=== PATIENT | male | born 1940 | race Caucasian/White ===

== ENCOUNTER → 2018-06-29 10:08 | Outpatient (CLI) | payer MEDICARE, OTHER, SELFPAY ==
--- NOTE | 2018-06-29 10:12 | DI.RAD.S_ITS ---
PROCEDURE: XR LUMBAR SPINE MIN 4V INDICATIONS: Lumbar stenosis with lower extremity radicular TECHNIQUE: 5 views of the lumbar spine were acquired. COMPARISON: None. FINDINGS: Bones: No fracture or focal osseous destruction. Dextroscoliosis is noted centered at the level of L2. There is diffuse lumbar disc degeneration and spurring. Multilevel facet arthropathy. Grade 1 retrolisthesis of L2 on L3 and L3 on L4. Grade 1 anterolisthesis of L5 on S1 and grade 1 anterolisthesis of T12 on L1. Soft tissues: Overlying bowel gas pattern is normal. Postsurgical changes projecting at the level of L4-L5. No suspicious soft tissue calcifications. Oblique images: No pars defects. IMPRESSION: Severe multilevel lumbar disc degeneration and facet arthropathy. Dextroscoliosis of the level of L2. Spondylolisthesis as above Dictated by: Khanh Daniels M.D. on 06/29/2018 at 16:39 Approved by: Khanh Daniels M.D. on 06/29/2018 at 16:41
== END ==
PROVIDERS: PCP Internal Medicine; Visit Provider Physical Medicine & Rehabilitation
DX: M48.061 Spinal stenosis, lumbar region without neurogenic claudication (principal); M51.16 Intervertebral disc disorders with radiculopathy, lumbar region; M47.26 Other spondylosis with radiculopathy, lumbar region; M41.86 Other forms of scoliosis, lumbar region; M43.16 Spondylolisthesis, lumbar region
CPT/HCPCS: 72110; 99215

== ENCOUNTER 2018-07-04 11:03 | Outpatient (CLI) | payer MEDICARE, OTHER, SELFPAY ==
[2018-07-04] VITALS (12 sets, daily range): BP systolic 119–154; BP diastolic 59–83; PULSE 62–67; RESP 14–20; TEMP 36.1; O2SAT 94–99
--- NOTE | 2018-07-04 11:05 | DI.RAD.S_ITS ---
PROCEDURE: PAIN L/S TRANSFORAMINAL INJECT INDICATIONS: Lumbar stenosis with lower extremity radicular FINDINGS: Fluoroscopic spot filming was performed to verify placement of spinal needles at the right L4-L5 level(s), as labeled on the films. Appropriate location(s) of the needle tip(s) was confirmed by injection of iodinated contrast. IMPRESSION: Successful needle tip localization at the right L4-5 transforaminal region for epidural steroid injection. Dictated by: Blair Isaac M.D. on 07/04/2018 at 13:16 Approved by: Blair Isaac M.D. on 07/04/2018 at 13:17
[2018-07-04] MEDS: MIDAZOLAM 5 MG/5 ML VIAL IV (12:05)
[2018-07-04] MEDS: methylPREDNISolone acetate 80 MG/ML VIAL INJ (12:14)
[2018-07-04] MEDS: IOPAMIDOL 15 ML VIAL 3 ML INJ (12:14)
[2018-07-04] MEDS: BUPIVACAINE 0.25% (PF) VIAL 2 ML INJ (12:14)
[2018-07-04] MEDS: DEXAMETHASONE 10 MG/ML VIAL 20 MG INJ (12:15)
--- NOTE | 2018-07-04 12:27 | P.PCN_ITS ---
Procedures Date/Time Date of procedure: 07/04/18 Time of procedure: 12:26 General Procedure description: PREOP DIAGNOSIS 1. FORMAINAL STENOSIS WITH LE SYMPTOMS POST OP DIAGNOSIS 1. FORMAINAL STENOSIS WITH LE SYMPTOMS PROCEDURES 1. FLUOROSCOPICALLY GUIDED CONTRAST CONTROLLED TRANSFORAMINAL EPIDURAL STEROID INJECTION - RIGHT L4/5 TFESI PHYSICIAN: Ben Marin DO INDICATIONS: Meet is referred by for treatment of Foraminal Stenosis with Right LE Symptoms FINDINGS Foraminal Nerve Root Compression secondary to disc disease and facet hypertrophy DESCRIPTION OF PROCEDURE: Following denial of allergy and review of potential side effects and complications, including, but not necessarily limited to, infection, allergic reaction, local tissue breakdown, stroke, temporary or permanent nerve injury, paralysis, and possible , the patient indicated that the patient understood and agreed to proceed. An informed consent document was signed by the patient, witnessed by a nurse, and placed in the patient's chart. Additionally, other treatment options including medications, modalities, and physical therapy were reviewed with the patient. After review of previous anaesthesic history and IV conscious sedation the patient was deemed safe to proceed with todays procedure with IV conscious sedation as ASA class II designation. Safety time-out was performed to confirm patient ID, procedure to be performed and site of procedure. IV sedation was accomplished with a combination of 3mg of Versed was administered by the RN after DO order, titrated to patient comfort during the course of the procedure while the patient remained responsive to all verbal commands In the prone position following sterile prep and drape of the lumbar region, the Right L4/5 posterior neuroforamen was identified fluoroscopically. The skin was anesthetized via a 25-gauge 1.5-inch needle with 1% lidocaine solution. At this point, a 25-gauge 3.5-inch spinal needle was atraumatically introduced and advanced under fluoroscopic guidance through the posterior Right L4/5 neuroforamen to approximately the anterior aspect of the canal. Depth was confirmed on lateral view. Following negative aspiration, injection of approximately 1.5 cc of Isovue 200 under live fluoroscopy in the AP view confirmed excellent flow along the nerve root, into the epidural space without vascular or intrathecal uptake observed Radiological data, including multiple fluoroscopic views of the lumbosacral spine, reveal a spinal needle at the right L4/5 posterior neuroforamen. Subsequent views show flow of contrast material flowing superiorly and inferiorly along the nerve root confirming epidural flow. Subsequently, a test dose of 1.5 cc of 1% lidocaine solution was administered and patient was observed for two minutes for signs or symptoms of complications , including abdominal pain, shortness of breath, bilateral upper or lower extremity weakness, nausea and vomiting, prior to steroid injection. At this point, a total of 3 cc or 20 mg of dexamethasone and 80mg Depo Medrol was injected without incident. The procedure tolerated the procedure well without signs or symptoms of complications prior to transfer to the recovery area continued monitoring without incident.The patient was then transferred to the recovery area where they were observed for an appropriate time after the injection. The patient reported a VAS score of 7 prior to the procedure and a post- procedure VAS of 0. Total Fluoroscopy Time: 20.9 seconds Total Conscious Sedation Time: 24min POST OP INSTRUCTIONS The patient was provided a Pain Log to continue to record their response to the target-specific procedure prior to follow-up visit with their referring physician. Additionally, specific post-injection care instructions and a contact number to our office were provided if concerns arise regarding possible complications associated with the procedure are suspected. Ben Marin DO Complications: none
== END 2018-07-04 13:02 | disposition home or self-care (01) ==
LOC: RAD 11:04
PROVIDERS: PCP Internal Medicine; Visit Provider Physical Medicine & Rehabilitation
DX: M51.16 Intervertebral disc disorders with radiculopathy, lumbar region (principal); M48.062 Spinal stenosis, lumbar region with neurogenic claudication
CPT/HCPCS: 64483; 99152; J1040; J1100; J2250

== ENCOUNTER 2018-08-14 11:26 | Outpatient (CLI) | payer MEDICARE, OTHER, SELFPAY ==
[2018-08-14] VITALS (9 sets, daily range): BP systolic 104–139; BP diastolic 56–99; PULSE 64–73; RESP 16–20; TEMP 36.5; O2SAT 96–99
--- NOTE | 2018-08-14 11:29 | DI.RAD.S_ITS ---
PROCEDURE: PAIN L/S TRANSFORAMINAL INJECT INDICATIONS: SPINAL STENOSIS FINDINGS: Fluoroscopic spot filming was performed to verify placement of spinal needles at the right side at L4-5 level(s), as labeled on the films. Appropriate location(s) of the needle tip(s) was confirmed by injection of iodinated contrast. IMPRESSION: Successful needle tip localization on the right at L4-5 for transforaminal epidural steroid injection. Dictated by: Blair Isaac M.D. on 08/14/2018 at 16:34 Approved by: Blair Isaac M.D. on 08/14/2018 at 16:35
[2018-08-14] MEDS: MIDAZOLAM 5 MG/5 ML VIAL IV (12:25)
[2018-08-14] MEDS: BUPIVACAINE 0.25% (PF) VIAL 2 ML INJ (12:31)
[2018-08-14] MEDS: IOPAMIDOL 15 ML VIAL 3 ML INJ (12:31)
[2018-08-14] MEDS: methylPREDNISolone acetate 80 MG/ML VIAL INJ (12:32)
[2018-08-14] MEDS: DEXAMETHASONE 10 MG/ML VIAL 20 MG INJ (12:32)
--- NOTE | 2018-08-14 12:37 | PC.NURSE ---
PT TRANSPORTED TO POST OP AREA IN STABLE CONDITION
--- NOTE | 2018-08-14 12:42 | P.PCN_ITS ---
Procedures Date/Time Date of procedure: 08/14/18 Time of procedure: 12:41 General Procedure description: PREOP DIAGNOSIS 1. FORMAINAL STENOSIS WITH LE SYMPTOMS POST OP DIAGNOSIS 1. FORMAINAL STENOSIS WITH LE SYMPTOMS PROCEDURES 1. FLUOROSCOPICALLY GUIDED CONTRAST CONTROLLED TRANSFORAMINAL EPIDURAL STEROID INJECTION - RIGHT L4/5 TFESI PHYSICIAN: Ben Marin DO INDICATIONS: Meet is referred by Dr. Augustin for treatment of Foraminal Stenosis with Right LE Symptoms FINDINGS Foraminal Nerve Root Compression secondary to disc disease and facet hypertrophy DESCRIPTION OF PROCEDURE: Following denial of allergy and review of potential side effects and complications, including, but not necessarily limited to, infection, allergic reaction, local tissue breakdown, stroke, temporary or permanent nerve injury, paralysis, and possible , the patient indicated that the patient understood and agreed to proceed. An informed consent document was signed by the patient, witnessed by a nurse, and placed in the patient's chart. Additionally, other treatment options including medications, modalities, and physical therapy were reviewed with the patient. After review of previous anaesthesic history and IV conscious sedation the patient was deemed safe to proceed with todays procedure with IV conscious sedation as ASA class II designation. Safety time-out was performed to confirm patient ID, procedure to be performed and site of procedure. IV sedation was accomplished with a combination of 3mg of Versed was administered by the RN after DO order, titrated to patient comfort during the course of the procedure while the patient remained responsive to all verbal commands In the prone position following sterile prep and drape of the lumbar region, the Right L4/5 posterior neuroforamen was identified fluoroscopically. The skin was anesthetized via a 25-gauge 1.5-inch needle with 1% lidocaine solution. At this point, a 25-gauge 3.5-inch spinal needle was atraumatically introduced and advanced under fluoroscopic guidance through the posterior Right L4/5 neuroforamen to approximately the anterior aspect of the canal. Depth was confirmed on lateral view. Following negative aspiration, injection of approximately 1.5 cc of Isovue 200 under live fluoroscopy in the AP view confirmed excellent flow along the nerve root, into the epidural space without vascular or intrathecal uptake observed Radiological data, including multiple fluoroscopic views of the lumbosacral spine, reveal a spinal needle at the right L4/5 posterior neuroforamen. Subsequent views show flow of contrast material flowing superiorly and inferiorly along the nerve root confirming epidural flow. Subsequently, a test dose of 1.5 cc of 1% lidocaine solution was administered and patient was observed for two minutes for signs or symptoms of complications , including abdominal pain, shortness of breath, bilateral upper or lower extremity weakness, nausea and vomiting, prior to steroid injection. At this point, a total of 3 cc or 20 mg of dexamethasone and 80mg Depo Medrol was injected without incident. The procedure tolerated the procedure well without signs or symptoms of complications prior to transfer to the recovery area continued monitoring without incident.The patient was then transferred to the recovery area where they were observed for an appropriate time after the injection. The patient reported a VAS score of 7 prior to the procedure and a post- procedure VAS of 0. Total Fluoroscopy Time: 20.9 seconds Total Conscious Sedation Time: 24min POST OP INSTRUCTIONS The patient was provided a Pain Log to continue to record their response to the target-specific procedure prior to follow-up visit with their referring physician. Additionally, specific post-injection care instructions and a contact number to our office were provided if concerns arise regarding possible complications associated with the procedure are suspected. Ben Marin DO Complications: none
--- NOTE | 2018-08-14 13:25 | PC.NURSE ---
pt arrived via wheelchair from [facility], pt awake and alert able to move from W/C to Chair without difficulty.
== END 2018-08-14 13:30 ==
LOC: RAD 11:27
PROVIDERS: PCP Internal Medicine; Visit Provider Physical Medicine & Rehabilitation
DX: M48.062 Spinal stenosis, lumbar region with neurogenic claudication (principal); M51.16 Intervertebral disc disorders with radiculopathy, lumbar region
CPT/HCPCS: 64483; 99152; J1040; J1100; J2250

== ENCOUNTER 2018-09-11 14:39 | Outpatient (CLI) | payer MEDICARE, OTHER, SELFPAY ==
[2018-09-11] VITALS (7 sets, daily range): BP systolic 112–166; BP diastolic 58–96; PULSE 71–79; RESP 16–18; TEMP 36.1; O2SAT 93–99
--- NOTE | 2018-09-11 14:42 | DI.RAD.S_ITS ---
PROCEDURE: PAIN L/SI FACET INJ/BLK 1STL INDICATIONS: SPONDYLOSIS FINDINGS: Fluoroscopic spot filming was performed to verify placement of spinal needles at the L3-L4, L4-L5 and L5-S1 level(s), as labeled on the films. Appropriate location(s) of the needle tip(s) was confirmed by injection of iodinated contrast. IMPRESSION: Fluoroscopy for pain management. Dictated by: Darlin De Leon M.D. on 09/11/2018 at 17:18 Approved by: Darlin De Leon M.D. on 09/11/2018 at 17:18
[2018-09-11] MEDS: MIDAZOLAM 5 MG/5 ML VIAL IV (15:46)
[2018-09-11] MEDS: BETAMETHASONE 30 MG/5 ML MDV 12 MG INJ (15:51)
[2018-09-11] MEDS: BUPIVACAINE 0.5% (PF) VIAL 2 ML INJ (15:51)
[2018-09-11] MEDS: IOPAMIDOL 15 ML VIAL 3 ML INJ (15:51)
[2018-09-11] MEDS: LIDOCAINE 1% 20 ML INJ 5 ML INJ (15:51)
--- NOTE | 2018-09-11 15:53 | PC.NURSE ---
assisting pt from table and transporting to post proc area in stable condition
--- NOTE | 2018-09-11 15:57 | P.PCN_ITS ---
Procedures Date/Time Date of procedure: 09/11/18 Time of procedure: 15:34 General Procedure description: PREOP DIAGNOSIS 1. FACET ARTHROPATHY, 2. AXIAL LBP, 3. MULTILEVEL DDD, POST OP DIAGNOSIS 1. FACET ARTHROPATHY, 2. AXIAL LBP, 3. MULTILEVEL DDD, PROCEDURES 1. FLUORSCOPICALLY GUIDED CONTRAST CONTROLLED FACET JOINT INJECTIONS RIGHT L3/4 , L4/5, L5/S1 SURGEON: Ben Marin, DO INDICATIONS Meet is referred by Dr. Augustin for treatment of Right Axial LBP FINDINGS Multilevel Facet Arthropathy with Clinically significant axial LBP DESCRIPTION OF PROCEDURE Fluoroscopically guided, contrast-controlled right L3/4, L4/5, L5/S1 facet joint injections. Following denial of allergy and review of potential side effects and complications, including, but not necessarily limited to, infection, allergic reaction, local tissue breakdown, stroke, temporary or permanent nerve injury, paralysis, and possible , the patient indicated that the patient understood and agreed to proceed. An informed consent document was signed by the patient, witnessed by a nurse, and placed in the patient's chart. Additionally, other treatment options including medications, modalities, and physical therapy were reviewed with the patient. After review of previous anaesthesic history and IV conscious sedation the patient was deemed safe to proceed with todays procedure with IV conscious sedation as ASA class II designation. Safety time-out was performed to confirm patient ID, procedure to be performed and site of procedure. IV sedation was accomplished with a combination of 5mg was administered by the RN after DO order , titrated to patient comfort during the course of the procedure while the patient remained responsive to all verbal commands. In the prone position, following sterile prep and drape of the lumbar region, the posterior aspect of the right L3/4, L4/5, L5/S1 facet joints were identified fluoroscopically. The skin was anesthetized via a 25-gauge 1.5-inch needle with 1% lidocaine solution into the corresponding facet joints. At this point, a 22-gauge 3.5-inch spinal needle was atraumatically introduced and advanced under fluoroscopic guidance into the corresponding facet joints. Following negative aspiration, injections of approximately 0.2-cc of Isovue 200 confirmed interarticular placement without vascular uptake. Radiological data, including multiple fluoroscopic views of the lumbosacral spine, reveal a spinal needle at the right L3/4, L4/5, L5/S1 facet joints. Subsequent views show flow of contrast material both superiorly and inferiorly within the joint space without vascular or intrathecal uptake. At this point, a total of 0.5 cc including a mixture of 0.25cc Marcaine and 0.25cc betamethasone was injected without complication into each of the corresponding facet joints. The procedure tolerated the procedure well without signs or symptoms of complications prior to transfer to the recovery area continued monitoring without incident. The patient was then transferred to the recovery area where they were observed for an appropriate period of time after the injection. The patient reported a VAS score of 7 prior to the procedure and a post-procedure VAS of 0. Total Fluoroscopy Time: 12.7 seconds Total Conscious Sedation Time: 24min POST OP INSTRUCTIONS The patient was provided a Pain Log to continue to record their response to the target-specific procedure prior to follow-up visit with their referring physician. Additionally, specific post-injection care instructions and a contact number to our office were provided if concerns arise regarding possible complications associated with the procedure are suspected. Ben Marin DO Complications: none
--- NOTE | 2018-09-12 12:38 | PC.NURSE ---
FOLLOW UP CALL MADE. PT STATES DECREASED PAIN AND DENIES QUESTIONS/CONCERNS.
== END 2018-09-11 16:30 | disposition home or self-care (01) ==
LOC: RAD 14:41
PROVIDERS: PCP Internal Medicine; Visit Provider Physical Medicine & Rehabilitation
DX: M47.817 Spondylosis without myelopathy or radiculopathy, lumbosacral region (principal); M47.816 Spondylosis without myelopathy or radiculopathy, lumbar region; M48.062 Spinal stenosis, lumbar region with neurogenic claudication; M51.36 Other intervertebral disc degeneration, lumbar region; M51.37 Other intervertebral disc degeneration, lumbosacral region; M54.5 Low back pain; G62.9 Polyneuropathy, unspecified
CPT/HCPCS: 64493; 99152; J0702; J2250

== ENCOUNTER 2018-11-07 13:41 | Outpatient (CLI) | payer MEDICARE, OTHER, SELFPAY ==
[2018-11-07] VITALS (9 sets, daily range): BP systolic 115–141; BP diastolic 63–77; PULSE 72–79; RESP 16–18; TEMP 36.2; O2SAT 97–99
--- NOTE | 2018-11-07 13:44 | DI.RAD.S_ITS ---
PROCEDURE: PAIN L/SI FACET INJ/BLK 1STL INDICATIONS: SPONDYLOSIS FINDINGS: Fluoroscopic spot filming was performed to verify placement of spinal needles at the L3, L4, L5 and S1 level(s), as labeled on the films. Appropriate location(s) of the needle tip(s) was confirmed by injection of iodinated contrast. IMPRESSION: Fluoroscopy for pain management. Dictated by: Darlin De Leon M.D. on 11/07/2018 at 15:55 Approved by: Darlin De Leon M.D. on 11/07/2018 at 15:56
[2018-11-07] MEDS: MIDAZOLAM 5 MG/5 ML VIAL IV (14:37)
[2018-11-07] MEDS: IOPAMIDOL 15 ML VIAL 3 ML INJ (14:44)
[2018-11-07] MEDS: BETAMETHASONE 30 MG/5 ML MDV 12 MG INJ (14:44)
[2018-11-07] MEDS: BUPIVACAINE 0.5% (PF) VIAL 2 ML INJ (14:44)
--- NOTE | 2018-11-07 14:46 | PC.NURSE ---
assisting pt off table and transporting to post proc area in stable condition
--- NOTE | 2018-11-07 14:53 | PM.PROC.1 ---
Procedures Date/Time Date of procedure: 11/07/18 Time of procedure: 14:53 General Procedure description: POST OP DIAGNOSIS 1. FACET ARTHROPATHY PROCEDURES 1. Right L3, L4, L5 and S1 MB BLOCKS PHYSICIAN: Ben Marin DO INDICATIONS Meet is referred by Dr. Augustin for treatment of Right Axial LBP. DESCRIPTION OF PROCEDURE Fluoroscopically guided, contrast-controlled right L3, L4, L5 and S1 medial branch blocks with 0.5cc of 0.5% Marcaine. Following denial of allergy and review of potential side effects and complications, including, but not necessarily limited to, infection, allergic reaction, local tissue breakdown, nerve injury, paralysis, stroke and possible , the patient indicated that the patient understood and agreed to proceed. An informed consent document was signed by the patient, witnessed by a nurse, and placed in the patient's chart. After review of previous anaesthestic history and IV conscious sedation the patient was deemed safe to proceed with todays procedure with IV conscious sedation as ASA class II designation. Safety time-out was performed to confirm patient ID, procedure to be performed and site of procedure. IV sedation was accomplished with a combination of 3mg was administered by the RN after DO order, titrated to patient comfort during the course of the procedure while the patient remained responsive to all verbal commands In the prone position, following sterile prep and drape of the lumbar region, the right L3, L4, L5 and S1 anatomical location of the medial branch of the dorsal ramus was identified fluoroscopically. Subsequently an anesthetic skin wheal using 1% lidocaine solution was initiated at each of the anatomical spots. Subsequently then a 22-gauge 3.5-inch spinal needle was atraumatically introduced and advanced under fluoroscopic guidance at each of the corresponding sites at the right L3, L4, L5 and S1 MB. After negative aspiration, 0.2cc of Isovue 200 was injected, confirming placement without vascular or intrathecal uptake. Subsequently then 0.5cc of 0.5% Marcaine solution was injected at each of the corresponding sites at the right L3, L4, L5 and S1 medial branch locations. The patient tolerated the procedure well without signs or symptoms of complications. The procedure tolerated the procedure well without signs or symptoms of complications prior to transfer to the recovery area continued monitoring without incident. Post-procedure, the patient was monitored initiating provocative activities to measure the amount of relief from block of the facetogenic pain. The patient reported a VAS of 7 prior to the procedure and a post-procedure VAS of 1. It has been a pleasure to assist in the diagnostic and therapeutic care of your patient. Total Fluoroscopy Time: 24.8 seconds Total Conscious Sedation Time: 24min POST OP INSTRUCTIONS The patient was provided with a Pain Log to complete over the next several hours and subsequent days prior to the patient's follow up with the ordering physician. If the patient has dispatcher street department relief to the solution applied, then they may be a candidate for medial branch rhizotomy. The patient is aware, was provided, once again, with a Pain Log and will follow up with the referring physician for review and clinical correlation Ben Marin DO Complications: none
--- NOTE | 2018-11-07 14:59 | P.PCN_ITS ---
Procedures Date/Time Date of procedure: 11/07/18 Time of procedure: 14:53 General Procedure description: POST OP DIAGNOSIS 1. FACET ARTHROPATHY PROCEDURES 1. Right L3, L4, L5 and S1 MB BLOCKS PHYSICIAN: Ben Marin DO INDICATIONS Meet is referred by Dr. Augustin for treatment of Right Axial LBP. DESCRIPTION OF PROCEDURE Fluoroscopically guided, contrast-controlled right L3, L4, L5 and S1 medial branch blocks with 0.5cc of 0.5% Marcaine. Following denial of allergy and review of potential side effects and complications, including, but not necessarily limited to, infection, allergic reaction, local tissue breakdown, nerve injury, paralysis, stroke and possible , the patient indicated that the patient understood and agreed to proceed. An informed consent document was signed by the patient, witnessed by a nurse, and placed in the patient's chart. After review of previous anaesthestic history and IV conscious sedation the patient was deemed safe to proceed with todays procedure with IV conscious sedation as ASA class II designation. Safety time-out was performed to confirm patient ID, procedure to be performed and site of procedure. IV sedation was accomplished with a combination of 3mg was administered by the RN after DO order , titrated to patient comfort during the course of the procedure while the patient remained responsive to all verbal commands In the prone position, following sterile prep and drape of the lumbar region, the right L3, L4, L5 and S1 anatomical location of the medial branch of the dorsal ramus was identified fluoroscopically. Subsequently an anesthetic skin wheal using 1% lidocaine solution was initiated at each of the anatomical spots. Subsequently then a 22-gauge 3.5-inch spinal needle was atraumatically introduced and advanced under fluoroscopic guidance at each of the corresponding sites at the right L3, L4, L5 and S1 MB. After negative aspiration, 0.2cc of Isovue 200 was injected, confirming placement without vascular or intrathecal uptake. Subsequently then 0.5cc of 0.5% Marcaine solution was injected at each of the corresponding sites at the right L3, L4, L5 and S1 medial branch locations. The patient tolerated the procedure well without signs or symptoms of complications. The procedure tolerated the procedure well without signs or symptoms of complications prior to transfer to the recovery area continued monitoring without incident. Post-procedure, the patient was monitored initiating provocative activities to measure the amount of relief from block of the facetogenic pain. The patient reported a VAS of 7 prior to the procedure and a post-procedure VAS of 1. It has been a pleasure to assist in the diagnostic and therapeutic care of your patient. Total Fluoroscopy Time: 24.8 seconds Total Conscious Sedation Time: 24min POST OP INSTRUCTIONS The patient was provided with a Pain Log to complete over the next several hours and subsequent days prior to the patient's follow up with the ordering physician. If the patient has low voltage technician relief to the solution applied, then they may be a candidate for medial branch rhizotomy. The patient is aware , was provided, once again, with a Pain Log and will follow up with the referring physician for review and clinical correlation Ben Marin DO Complications: none
--- NOTE | 2018-11-07 15:00 | PC.NURSE ---
Received pt from post procedure via W/C awake and alert able to move from W/C to chair with minimal assist. Resumed monitoring from [facility].
== END 2018-11-07 15:34 | disposition home or self-care (01) ==
LOC: RAD 13:43
PROVIDERS: PCP Internal Medicine; Visit Provider Physical Medicine & Rehabilitation
DX: M47.817 Spondylosis without myelopathy or radiculopathy, lumbosacral region (principal); M47.816 Spondylosis without myelopathy or radiculopathy, lumbar region
CPT/HCPCS: 64493; 64494; 64495; 99152; J0702; J2250

== ENCOUNTER 2019-12-10 11:17 | Outpatient (CLI) | payer MEDICARE, OTHER, SELFPAY ==
[2019-12-10] VITALS (10 sets, daily range): BP systolic 127–141; BP diastolic 68–75; PULSE 61–75; RESP 16–18; TEMP 36.1; O2SAT 94–100
--- NOTE | 2019-12-10 11:18 | DI.RAD.S_ITS ---
PROCEDURE: PAIN L/S MED/LAT N RFA INDICATIONS: SPONDYLOSIS FINDINGS: Fluoroscopic spot filming was performed to verify placement of spinal needles at the L3, L4, L5, S1 level(s), as labeled on the films. Appropriate location(s) of the needle tip(s) was confirmed by injection of iodinated contrast. Dictated by: Khanh Daniels M.D. on 12/11/2019 at 11:54 Approved by: Khanh Daniels M.D. on 12/11/2019 at 11:58
[2019-12-10] MEDS: MIDAZOLAM 5 MG/5 ML VIAL IV (12:38)
[2019-12-10] MEDS: fentaNYL 100 MCG/2 ML INJ 50 MCG IV (12:39)
[2019-12-10] MEDS: BUPIVACAINE 0.5% (PF) VIAL 2 ML INJ (12:56)
[2019-12-10] MEDS: LIDOCAINE 2% INJ SDV 1 ML INJ (12:56)
--- NOTE | 2019-12-10 13:03 | PC.NURSE ---
ASSISTING PT OFF TABLE ADN TRANSPORTING TO POST PROC AREA IN STABLE CONDITION. PASSING RN CARE OF PT OFF TO ILDA Ricardo RN.
--- NOTE | 2019-12-10 13:10 | P.PCN_ITS ---
Procedures Date/Time Date of procedure: 12/10/19 Time of procedure: 13:11 General Procedure description: PREOP DIAGNOSIS 1. RECALCITRANT FACET ARTHROPATHY, POST OP DIAGNOSIS 1. RECALCITRANT FACET ARTHROPATHY, PROCEDURES 1. RIGHT L3, L4 AND L5 MEDIAL BRANCH RADIOFREQUENCY NEUROTOMY AND RIGHT S1 DORSAL RAMUS BRANCH RADIOFREQUENCY NEUROTOMY, SURGEON: Ben Marin, DO INDICATIONS Meet is referred by Dr. Augustin for treatment of facet arthropathy. DESCRIPTION OF PROCEDURE Right L3, L4 and L5 medial branch radiofrequency neurotomy and right S1 dorsal ramus branch radiofrequency neurotomy under fluoroscopy with conscious sedation. The patient is well known to this clinic having undergone previous facet injections with good but temporary relief. The patient has experienced appropriate, concordant relief with previous facet and median branch blocks but the patient's pain has been recalcitrant to further conservative measures. Therefore, based upon the patient's relief and persistent symptoms, the patient is considered an appropriate candidate for facet rhizotomy. All of the patient's questions regarding the risks versus benefits of the procedure, including, but not limited to, bleeding, infection, temporary as well as lasting nerve injury, paralysis, stroke, and , as well treatment alternatives were answered to satisfaction. After review of previous anaesthesic history and IV conscious sedation the patient was deemed safe to proceed with todays procedure with IV conscious sedation as ASA class II designation. Safety time-out was performed to confirm patient ID, procedure to be performed and site of procedure. IV sedation was accomplished with a combination of 2mg of Versed and 50mcg of Fentanyl was administered by the RN after DO order, titrated to patient comfort during the course of the procedure while the patient remained responsive to all verbal commands. After obtaining informed consent, denial of pertinent drug allergies, as well as being made aware of the potential risks of bleeding, infection, spinal cord trauma, paralysis, temporary and permanent nerve damage, seizure, stroke, and possible , the patient was brought to the fluoroscopy suite and positioned prone on the fluoroscopy table. The lumbar region was prepped with Betadine and covered with a fenestrated drape in the usual sterile fashion. Appropriate monitors applied including pulse oximeter, pulse, and blood pressure for regular monitoring throughout the procedure. After local infiltration using 1% lidocaine, under fluoroscopic guidance, a 10- cm RF insulated needle with a 10-mm active tip was positioned parallel to the junction of the right sacral ala and the superior articulating process where the S1 dorsal ramus resides. Needle placement was confirmed with sensory stimulation at 50 Hz, with motor stimulation of .5v on the right which produced local stimulation without radicular component. The stimulation was then increased to 1.5v with, once again, only local multifidus stimulation without radicular component. This was then followed by two discreet lesions performed at 80 degrees Celsius for 90 seconds each. The needle was then removed and the identical procedure was performed along the length of the right L5 medial branch with motor stimulation at .7v on the right. The procedure was once again performed along the length of the right L4 medial branch with motor stimulation of .5v on the right. The identical procedure was once again performed along the length of the right L3 medial branch with motor stimulation of .6v on the right. The patient tolerated the procedure well without signs or symptoms of complications prior to transfer to the recovery area continued monitoring without incident. The patient was then transferred to the recovery area where they were observed for an appropriate period of time after the injection. The patient was then transferred to the recovery area where they were observed for an appropriate period of time after the injection. The patient reported a VAS score of 7 prior to the procedure and a post- procedure VAS of 0. Total Fluoroscopy Time: 23 seconds Total Conscious Sedation Time: 45min POST OP INSTRUCTIONS The patient was provided a Pain Log to continue to record the patient's response to the target-specific procedure prior to the patient's follow-up visit with the referring physician. Additionally, specific post-injection care instructions and a contact number to our office were provided if concerns arise regarding possible complications associated with the procedure are suspected. Ben Marin DO Complications: none
--- NOTE | 2019-12-10 14:58 | PC.NURSE ---
1313: Received patient post procedure. VSS upon arrival. Spouse at side providing supportive care.
== END 2019-12-10 13:22 ==
LOC: RAD 11:18
PROVIDERS: PCP Internal Medicine; Referring Provider Physical Medicine & Rehabilitation; Visit Provider Physical Medicine & Rehabilitation
DX: M47.816 Spondylosis without myelopathy or radiculopathy, lumbar region (principal)
CPT/HCPCS: 64635; 64636; 99152; J2250; J3010